=== PATIENT | female | born 1955 | race American Indian/Alaskan Native ===

== ENCOUNTER 2016-12-06 09:31 | Outpatient (CLI) | payer OTHER ==
--- NOTE | 2016-12-06 10:17 | Mammography Report ---
Screening mammogram: The patient had this exam on the above date . It was indicated to us that previous films should be available that would be helpful in providing optimal evaluation with regards to the current study. A final report will be issued, pending receipt of the prior study. CAD was utilized. BI-RADS CATEGORY: 0 = Needs additional imaging evaluation ACR BI-RADS MAMMOGRAPHIC CODES: 0 = Needs additional imaging evaluation; 1 = Negative; 2 = Benign; 3 = Probably benign; 4 = Suspicious; 5 = Malignant; 6 = Known biopsy-proven malignancy COMMENT: 1. Dense breast tissue, i.e., adenosis, fibrocystic changes, etc., may obscure an underlying neoplasm. 2. Approximately 10% of cancers are not detected with mammography. 3. A negative mammography report should not delay biopsy if a clinically suspicious mass is present.
== END 2016-12-06 09:32 | disposition home or self-care (01) ==
LOC: SPVWC 09:31
DX: Z12.31 Encounter for screening mammogram for malignant neoplasm of breast (principal)
CPT/HCPCS: 77067; G0202

== ENCOUNTER 2017-11-07 14:43 | Outpatient (CLI) | payer OTHER ==
--- NOTE | 2017-11-07 16:24 | XRay Report ---
XRAY BILATERAL KNEE THREE VIEWS EACH: 11/07/17 14:43:00 CLINICAL: Bilateral knee pain. FINDINGS: Right: The medial and lateral joint spaces are normal. However, tiny EBL osteophytes. No fracture or dislocation. Mild patellofemoral joint osteoarthritis. No joint effusion. Normal soft tissues. Left: Mild medial joint space narrowing with small osteophytes. The lateral joint space is normal. Mild patellofemoral joint osteoarthritis. No fracture or dislocation. No joint effusion.Normal soft tissues. 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
== END 2017-11-07 14:44 | disposition home or self-care (01) ==
LOC: SPVIMAG 14:43
DX: M17.0 Bilateral primary osteoarthritis of knee (principal)